=== PATIENT | female | born 1965 | race Two or more races ===

== ENCOUNTER 2017-03-11 08:50 | Day surgery (SDC) | payer BC ==
[~2017-03-11] VITALS: Ht 149.9 cm; Wt 54.0 kg
[~2017-03-11 08:50] MED LIST: FLONASE16 G1 BOTH NARES; MULTIPLE VITAM1 EACH PO; PULMICORT FLEX90 MCG IH; VENTOLIN HFA18 GM IH; VITAMIN D32000 UNI1 PO; ZYRTEC10 M2 PO
[2017-03-11 09:20] VITALS: BP 111/66
[2017-03-11] MEDS ORDERED: IBUPROFEN800 MG PO (11:06)
[2017-03-11] MEDS ORDERED: ENDOCET 5-3251 EACH PO (11:06)
[2017-03-11 17:00] VITALS: BP 136/75
[2017-03-11 17:55] VITALS: BP 120/70
[2017-03-11 18:45] VITALS: BP 140/68
== END 2017-03-11 18:55 | disposition home or self-care (01) ==
LOC: SDC 08:50
DX: D25.9 Leiomyoma of uterus, unspecified (principal); N80.0 Endometriosis of uterus; N92.0 Excessive and frequent menstruation with regular cycle; K91.72 Accidental puncture and laceration of a digestive system organ or structure during other procedure; I10 Essential (primary) hypertension; J45.909 Unspecified asthma, uncomplicated; F41.9 Anxiety disorder, unspecified
CPT/HCPCS: 88307; J0330; J1100; J1170; J1580; J1885; J2250; J2405; J2710; J2765; J3010; J7050